=== PATIENT | female | born 1935 | race American Indian/Alaskan Native ===

== ENCOUNTER 2017-09-30 15:05 | Inpatient (IN) | payer OTHER ==
[~2017-09-30] VITALS: Ht 147.3 cm; Wt 47.4 kg
[2017-09-30 15:07] VITALS: BP 149/89
[2017-09-30] MEDS ORDERED: MIRTAZAPINE 7.5 MG TABLET (15:11)
[2017-09-30] MEDS ORDERED: DIAZEPAM 5 MG TABLET (15:11)
[2017-09-30] MEDS ORDERED: LYRICA (15:11)
[2017-09-30] MEDS ORDERED: MUPIROCIN 2% OINTMENT (15:11)
[2017-09-30] MEDS ORDERED: GABAPENTIN 100 MG CAPSULE (15:11)
[2017-09-30] MEDS ORDERED: LORAZEPAM 0.5 MG TABLET (15:11)
[2017-09-30] MEDS ORDERED: [UNRECOGNIZED DRUG - OTHER] (15:11)
--- NOTE | 2017-09-30 15:25 | NUR ---
PT BIBA FOR C/O SOB SINCE YESTERDAY. DENIES N/V/DIZZINESS. PT PLACED ON ALL MONITORS, VS WNL, PLACED ON 2L O2 VIA NC PER MD ORDER. CHEST HAS NORMAL APPEARENCE AND SHAPE, NAD NOTED AT THIS TIME. PENDING LABS
--- NOTE | 2017-09-30 15:40 | NUR ---
LAB AT BEDSIDE
--- NOTE | 2017-09-30 16:02 | NUR ---
DR MELO AT BEDSIDE TO [facility]
--- NOTE | 2017-09-30 16:02 | NUR ---
PT AMBULATES WITH STEADY GAIT TO BR FOR UA SAMPLE
[2017-09-30 16:03] LABS: BASOPHILS # (AUTO) 0.1 K/uL (0.00-0.22); EOSINOPHILS % (AUTO) 0.4 % (0.0-4.0); HEMATOCRIT 38.8 % (36-48); HEMOGLOBIN 13.1 g/dL (12.0-16.0); LYMPHOCYTES # (AUTO) 1.5 K/uL (2.5-16.5); MEAN CORPUSCULAR HEMOGLOBIN 29 pg (27-31); MEAN CORPUSCULAR HGB CONC 34 g/dL (33-37); MEAN CORPUSCULAR VOLUME 86.3 fL (80-94); MONOCYTES # (AUTO) 0.5 K/uL (0.8-1.0); MONOCYTES % (AUTO) 8.8 % (1.7-9.3); NEUTROPHILS % (AUTO) 64.8 % (42.2-75.2); PLATELET COUNT (AUTO) 176 K/uL (140-450); RED CELL DISTRIBUTION WIDTH 13.6 % (11.6-13.7); WHITE BLOOD COUNT (AUTO) 6.1 K/uL (4.8-10.8)
[2017-09-30 16:17] LABS: CARBON DIOXIDE 23.3 mmol/L (21-32); CHLORIDE 106 mmol/L (98-107); CREATININE 0.9 mg/dL (0.6-1.3); GLUCOSE 104 mg/dL (74-106); POTASSIUM 3.3 mmol/L (3.5-5.1); SODIUM SERUM 141 mmol/L (136-145); UREA NITROGEN, BLOOD 15 mg/dL (7-18)
[2017-09-30 16:23] LABS: ASPARTATE AMINOTRANSFERASE 28 U/L (15-37); TOTAL BILIRUBIN 0.4 mg/dL (0.0-1.0)
--- NOTE | 2017-09-30 16:43 | NUR ---
PT IN BED READING FRO HER BOOK, LEGS CROSSED, ON ALL MONIOTRS, VSS. UPDATED ON POC.
--- NOTE | 2017-09-30 17:19 | NUR ---
FAMILY MEMBER REQUESTED TO SPEAK WITH MD---STATING THEY HAVE BEEN IN ER MANY TIMES AND NOTHING IS EVER FOUND PT IS LOSSING WEIGHT AND DOES NOT FEEL WELL DR. MELO NOTIFIED Patient discharged with v/s stable. Written and verbal after care instructions given and explained. Patient verbalized understanding. with . All questions addressed prior to discharge. Advised to follow up with PMD.
--- NOTE | 2017-09-30 17:26 | NUR ---
DISPO IS ADMIT AFTER MD SPOKE WITH FAMILY----
--- NOTE | 2017-09-30 17:51 | NUR ---
ACTIVITY PT AMBULALTES TO AND FROM BR WITH STEADY GAIT. PLACED BACK ON ALL MONITORS, NAD NOTED/STATED AT THIS TIME. PENDING ADMIT ORDERS
[2017-09-30] MEDS ORDERED: ONDANSETRON 4 MG/2 ML VIAL IVP PRN (17:55)
[2017-09-30] MEDS ORDERED: LORazepam 2 MG/ML VIAL IVP PRN (17:55)
[2017-09-30 18:23] LABS: APPEARANCE,URINE CLEAR (CLEAR); BILIRUBIN,URINE NEGATIVE (NEGATIVE); BLOOD, URINE NEGATIVE (NEGATIVE); COLOR,URINE YELLOW (YELLOW); LEUKOCYTE ESTERASE ,URINE NEGATIVE (NEGATIVE); NITRITE, URINE NEGATIVE (NEGATIVE); UGLUCOSE NEGATIVE (NEGATIVE)
--- NOTE | 2017-09-30 18:37 | NUR ---
Pt transferred to Med/Surg via [facility] ROOM 123-A , REPORT GIVEN TO ROLAN OROZCO
--- NOTE | 2017-09-30 19:35 | NUR ---
ADMITTED PATIENT TO THE MED-SURG UNIT. PATIENT AWAKE ALERT ORIENTED X2, FORGETFUL. NO S/S OF DISTRESS NOTED, RESPIRATION EVEN AND UNLABORED, ON ROOM AIR. IV PATENT AND INTACT. PATIENT IS AMBULATORY, INSTRUCTED PATIENT TO CALL FOR ASSISTANCE WHEN SHE NEEDS TO USE THE BATHROOM. PATIENT VERBALIZED UNDERSTANDING. CALL LIGHT WITHIN REACH, SAFETY MEASURE ENSURED, WILL CONTINUE TO MONITOR.
[2017-09-30 19:50] VITALS: BP 177/93
--- NOTE | 2017-09-30 19:50 | NUR ---
BP 177/93, HR 81, PAGED DR. GANN, DR. CASTILLO SOLUTION DESIGN AND ANALYSIS MANAGER. MADE HIM AWARE OF PATIENT'S BP AND HR. RECEIVED ORDER OF NORVASC 5MG, PO, DAILY, AND GIVE NORVASC 5MG FOR NOW. ASKED DR. CASTILLO IF I NEED TO CALL HIM AGAIN IF THE BP IS HIGH AFTER ADMINISTERING NORVASC, STATED," IF PATIENT DOES NOT COMPLAIN OF HEADACHE AND SHE IS ASYMPTOMATIC, THEN YOU DON'T NEED TO CALL AGAIN." WILL CONTINUE TO MONITOR.
[2017-09-30] MEDS ORDERED: amLODIPine 5 MG TAB PO ONE (20:07)
[2017-09-30] MEDS: NACL 0.9% 1,000 ML IV SCH (20:52)
[2017-09-30] MEDS ORDERED: MIRTAZAPINE 15 MG TAB PO SCH (21:00)
[2017-09-30] MEDS ORDERED: IBUPROFEN 400 MG TAB PO PRN (22:05)
--- NOTE | 2017-09-30 22:10 | NUR ---
PATIENT ASKED FOR PAIN MEDICATION, DUE TO ABDOMINAL PAIN 10/28. PAGED DR. CASTILLO, RECEIVED ORDER OF MOTRIN 400MG PO TID PRN FOR MODERATE PAIN. WILL CONTINUE TO MONITOR.
[2017-09-30 23:33] VITALS: BP 167/76
--- NOTE | 2017-09-30 23:40 | NUR ---
BP 167/76, HR 72, NO S/S OF DISTRESS NOTED, RESPIRATION EVEN AND UNLABORED, CALL LIGHT WITHIN REACH, SAFETY MEASURE ENSURED, WILL CONTINUE TO MONITOR.
--- NOTE | 2017-10-01 02:55 | NUR ---
PATIENT IS SLEEPING, NO S/S OF DISTRESS NOTED, RESPIRATION EVEN AND UNLABORED, CALL LIGHT WITHIN REACH, SAFETY MEASURE ENSURED, WILL CONTINUE TO MONITOR.
--- NOTE | 2017-10-01 04:08 | NUR ---
BP 154/70, HR 64, NO S/S OF DISTRESS NOTED, SAFETY MEASURE ENSURED, WILL CONTINUE TO MONITOR.
[2017-10-01 06:12] LABS: BASOPHILS # (AUTO) 0.1 K/uL (0.00-0.22); BASOPHILS % (AUTO) 1.1 % (0.0-2.0); EOSINOPHILS # (AUTO) 0.2 K/uL (0-0.4); EOSINOPHILS % (AUTO) 3.1 % (0.0-4.0); HEMATOCRIT 35.5 % (36-48); HEMOGLOBIN 12.2 g/dL (12.0-16.0); LYMPHOCYTES # (AUTO) 2.4 K/uL (2.5-16.5); LYMPHOCYTES % (AUTO) 43.7 % (20.5-51.1); MEAN CORPUSCULAR HEMOGLOBIN 30 pg (27-31); MEAN CORPUSCULAR HGB CONC 34 g/dL (33-37); MEAN CORPUSCULAR VOLUME 86.9 fL (80-94); MONOCYTES # (AUTO) 0.5 K/uL (0.8-1.0); MONOCYTES % (AUTO) 9.5 % (1.7-9.3); NEUTROPHILS # (AUTO) 2.3 K/uL (1.8-7.7); NEUTROPHILS % (AUTO) 42.6 % (42.2-75.2); PLATELET COUNT (AUTO) 156 K/uL (140-450); RED BLOOD CELL COUNT(AUTO) 4.09 MIL/uL (4.20-5.40); RED CELL DISTRIBUTION WIDTH 13.6 % (11.6-13.7); WHITE BLOOD COUNT (AUTO) 5.4 K/uL (4.8-10.8)
--- NOTE | 2017-10-01 06:36 | NUR ---
PATIENT IS SLEEPING, NO S/S OF DISTRESS NOTED, RESPIRATION EVEN AND UNLABORED, CALL LIGHT WITHIN REACH, SAFETY MEASURE ENSURED, WILL CONTINUE TO MONITOR.
[2017-10-01 06:37] LABS: ALBUMIN 3.5 g/dL (3.4-5.0); ANION GAP 13.8 (8-16); ASPARTATE AMINOTRANSFERASE 22 U/L (15-37); CARBON DIOXIDE 24.2 mmol/L (21-32); CHLORIDE 109 mmol/L (98-107); CREATININE 0.8 mg/dL (0.6-1.3); GLUCOSE 87 mg/dL (74-106); PHOSPHORUS 4.3 mg/dL (2.5-4.9); SODIUM SERUM 144 mmol/L (136-145); TOTAL BILIRUBIN 0.5 mg/dL (0.0-1.0); UREA NITROGEN, BLOOD 13 mg/dL (7-18)
[2017-10-01] MEDS: NACL 0.9% 1,000 ML IV SCH (06:45)
--- NOTE | 2017-10-01 07:25 | NUR ---
ENDORSED PLAN OF CARE TO DAY SHIFT ERNESTO VELAZCO. PATIENT IS IN STABLE CONDITION.
--- NOTE | 2017-10-01 07:30 | NUR ---
ASSUMED CARE PF PATIENT, SHE IS ALERT AND ORIENTED ABLE TO MAKE NEEDS KNOWN. NO EVIDENCE OF ACUTE DISTRESS NOTED AT THIS TIME.
[2017-10-01 08:22] VITALS: BP 178/74
[2017-10-01] MEDS ORDERED: amLODIPine 5 MG TAB PO SCH (09:00)
[2017-10-01] MEDS ORDERED: ENOXAPARIN 30 MG/0.3 ML SYR SUBQ SCH (09:00)
[2017-10-01] MEDS ORDERED: GABAPENTIN 300 MG CAP PO SCH (09:00)
--- NOTE | 2017-10-01 10:27 | NUR ---
PATIENT C/O FEELING "SHORT OF BREATH" VITALS SIGNS WITH ACCEPTABLE LIMITS, O2 SATURATION RECORDS AT 100% COLOR REMAINS PINK, PATIENT DENIES CHEST PAIN OR DISCOMFORT. CHARGE NURSE NOTIFIED AND PATIENT GIVEN 1L O2 FOR COMFORT.
--- NOTE | 2017-10-01 10:41 | NUR ---
[place]IT[place] [facility] [phone] PHONE CAMERON [phone]
--- NOTE | 2017-10-01 11:20 | NUR ---
PATIENT DENIES FEELING SHORT OF BREATH, O2 DISCONTINUED AT THIS TIME.
--- NOTE | 2017-10-01 12:15 | NUR ---
PATIENT DISCHARGED TO HOME ACCOMPANIED BY SPOUSE, TAKEN IN PRIVATE TRANSPORTATION. IV REMOVED INTACT PRIOR TO DISCHARGE. ALL BELONGS ALONG WITH PRESCRIPTION TAKEN BY PATIENT.
--- NOTE | 2017-10-01 12:40 | NUR ---
SPOUSE AT BEDSIDE AND PATIENT SITTING UP FOR LUNCH TOOK 2 SIPS OF SOUP AND AGAIN C/O FEELING SHORT OF BREATH, SPOUSE EXPRESSING CONCERN BECAUSE THIS HAS BEEN GOING ON FOR THE LAST FEW MONTHS AND SHE LOST A LOT OF WEIGHT.
[2017-10-01] MEDS ORDERED: ACETAMINOPHEN 325 MG TAB PO PRN (14:35)
--- NOTE | 2017-10-01 15:03 | NUR ---
PATIENT HAS BEEN SCREENED AND CATEGORIZED LOW NUTRITION RISK. PATIENT WILL BE SEEN WITHIN 7 DAYS OF ADMISSION. 10/08/[address]
--- NOTE | 2017-10-01 15:34 | NUR ---
DR GANN HERE AND ASSESSED PATIENT SHE WAS INFORMED OF EPISODES OF SHORTNESS OF BREATH. dR GANN SPOKE WITH AND HER SISTER AND PATIENT TO BE DISCHARGED HOME. PATIENT AGAIN C/O SHORTNESS OF BREATH WITHOUT CHANGE IN GENERAL APPEARANCE. ON TALKING WITH PATIENT SHE NOW ADMITS TO HAVING EPISODES OF ANXIETY AND IS FEELING VERY ANXIOUS NOW.
--- NOTE | 2017-10-01 17:06 | NUR ---
RECEIVED ORDER FOR HOME HEALTH SAFETY EVAL. CALLED CAMERON FROM [facility] AND FAXED ORDER TO HER. Oneil [phone] PHONE CAMERON [phone].. SHE SAID SHE WOULD ARRANGE THE HOME HEALTH SAFETY EVAL.
[2017-10-02] MEDS ORDERED: amLODIPine 5 MG TAB PO SCH (09:00)
--- NOTE | 2017-10-04 14:35 | NUR ---
CM NOTE CLINICAL INFORMATION FAXED TO [facility] / FAX# [phone], ATTN: [facility] #[phone]
== END 2017-10-01 16:00 | disposition home health service (06) | DRG 918 ==
LOC: MED 15:05 → MTU 18:01
PROVIDERS: ADMIT Hospitalist; ATTEND Hospitalist
DX: T42.4X1A Poisoning by benzodiazepines, accidental (unintentional), initial encounter (principal); A52.17 General paresis; R63.0 Anorexia; E86.0 Dehydration; F41.9 Anxiety disorder, unspecified; M19.90 Unspecified osteoarthritis, unspecified site; I10 Essential (primary) hypertension; Z68.21 Body mass index [BMI] 21.0-21.9, adult; Y92.89 Other specified places as the place of occurrence of the external cause; Z86.11 Personal history of tuberculosis; E87.6 Hypokalemia
CPT/HCPCS: 36415; 71045; 80053; 81003; 82550; 82553; 83605; 83735; 83880; 84100; 84484; 85025; 85610; 85730; 87040; 87081; 87086; 93005; 99285; J1650; J2060; J7030; Q0092